=== PATIENT | male | born 1980 | race American Indian/Alaskan Native ===

== ENCOUNTER 2019-09-09 12:05 | Emergency (ER) | payer SELFPAY ==
[2019-09-09 12:41] VITALS: BP 121/81
== END 2019-09-09 14:10 | disposition left against medical advice (07) ==
LOC: ED 12:05
DX: M79.18 Myalgia, other site (principal); R05 Cough; Z53.21 Procedure and treatment not carried out due to patient leaving prior to being seen by health care provider

== ENCOUNTER 2021-04-12 23:17 | Emergency (ER) | payer OTHER ==
[2021-04-13] MEDS ORDERED: ACETAMINOPHEN 325 MG TAB PO ONE (02:26)
[2021-04-13 03:13] LABS: Hematocrit 42.4 % (35.5-45.6); Hemoglobin 14.8 gm/dl (11.8-15.2); Mean Corpuscular HGB Conc 35 % (32-34); Mean Corpuscular Volume 83 fl (84-94); Platelet Count 285 K/mm3 (140-440); Red Blood Count 5.12 M/mm3 (3.65-5.03); Red Cell Distribution Width 15.7 % (13.2-15.2)
[2021-04-13 03:29] LABS: BUN/Creatinine Ratio 6; Blood Urea Nitrogen 6 mg/dL (9-20); Calcium 9.2 mg/dL (8.4-10.2); Hemolysis Index 3
[2021-04-13 04:01] LABS: RBC Morphology Normal; Total Cells Counted 100
[2021-04-13 10:29] VITALS: BP 127/85
--- NOTE | 2021-04-13 10:30 | Emergency Department Report ---
ED Headache HPI - General Chief Complaint: Headache Stated Complaint: BAD HEADACHE Source: patient - History of Present Illness Initial Comments: 40-year-old male who reports no significant past medical history presents to the ER today with complaints of a left frontal headache. Patient states that he has had the headache for about 3 to 4 days. States that the headache has been constant and throbbing in nature. He states that he has not tried taking anything for the headache he was given Tylenol on arrival and he states that did seem to help with the pain. He states that he does not typically suffer from headaches. He denies any associated nausea, vomiting, neck pain, URI symptoms, cough, fever or chills. He denies any vision changes, slurred speech, focal weakness, numbness or tingling. He denies any recent head injuries. Timing/Duration: constant Quality: moderate Head Injury Location: frontal Allergies/Adverse Reactions: Allergies No Known Allergies Allergy (Unverified 11/15/15 08:36) Home Medications: Ambulatory Orders HYDROcodone/APAP 5-325 [[place] 5-325 mg TAB] 1 each PO Q4HR PRN #12 tablet 11/15/15 Sulfamethoxazole/Trimethoprim [Bactrim DS TAB] 1 each PO BID #14 tablet 11/15/15 Amoxicillin [Trimox CAP] 500 mg PO Q8H #21 capsule 04/13/21 Butalb/Acetamin/Caff 50-325-40 [Fioricet 50-325-40] 1 tab PO Q6HR PRN #12 tab 04/13/21 Fluticasone [Flonase] 2 spray NS QDAY #1 bottle 04/13/21 ED Review of Systems ROS: Stated complaint: BAD HEADACHE Other details as noted in HPI Comment: All other systems reviewed and negative Constitutional: denies: chills, fever Eyes: denies: eye pain, eye discharge, vision change ENT: denies: ear pain, throat pain, dental pain, hearing loss, epistaxis, congestion Respiratory: denies: cough, orthopnea, shortness of breath, SOB with exertion, SOB at rest, wheezing Cardiovascular: denies: chest pain, palpitations, dyspnea on exertion, edema, syncope, paroxysmal nocturnal dyspnea Gastrointestinal: denies: abdominal pain, nausea, vomiting, diarrhea, constipation, hematemesis, hematochezia Genitourinary: denies: frequency, hematuria, discharge, testicular pain, testicular mass Musculoskeletal: denies: back pain, joint swelling, arthralgia Skin: denies: rash, lesions, change in color, change in hair/nails, pruritus Neurological: headache. denies: weakness, numbness, paresthesias, confusion, abnormal gait Psychiatric: denies: anxiety, depression, auditory hallucinations, visual alejandro lucinations, homicidal thoughts, suicidal thoughts Hematological/Lymphatic: denies: easy bleeding, easy bruising ED Past Medical Hx - Past Medical History Hx HIV: Yes - Surgical History Additional Surgical History: left hip repair - Social History Smoking Status: Current Every Day Smoker Substance Use Type: None - Medications Home Medications: Home Medications Medication Instructions Recorded Confirmed Last Taken Type HYDROcodone/APAP 5-325 [[place] 1 each PO Q4HR PRN #12 tablet 11/15/15 Unknown Rx 5-325 mg TAB] Sulfamethoxazole/Trimethoprim 1 each PO BID #14 tablet 11/15/15 Unknown Rx [Bactrim DS TAB] Amoxicillin [Trimox CAP] 500 mg PO Q8H #21 capsule 04/13/21 Unknown Rx Butalb/Acetamin/Caff 50-325-40 1 tab PO Q6HR PRN #12 tab 04/13/21 Unknown Rx [Fioricet 50-325-40] Fluticasone [Flonase] 2 spray NS QDAY #1 bottle 04/13/21 Unknown Rx ED Physical Exam - General Limitations: No Limitations General appearance: alert, in no apparent distress - Head Head exam: Present: atraumatic, normocephalic, normal inspection - Eye Eye exam: Present: normal appearance, PERRL, EOMI Pupils: Present: normal accommodation - ENT ENT exam: Present: normal exam, mucous membranes moist, other (ttp LEFT FRONTAL SINUS) - Neck Neck exam: Present: normal inspection, full ROM. Absent: meningismus - Respiratory Respiratory exam: Present: normal lung sounds bilaterally. Absent: respiratory distress, wheezes, rales, rhonchi - Cardiovascular Cardiovascular Exam: Present: regular rate, normal rhythm, normal heart sounds - GI/Abdominal GI/Abdominal exam: Present: soft. Absent: distended, tenderness, guarding - Neurological Exam Neurological exam: Present: alert, oriented X3, CN II-XII intact, normal gait - Psychiatric Psychiatric exam: Present: normal affect, normal mood - Skin Skin exam: Present: intact ED Course Vital Signs 04/13/21 04/13/21 04/13/21 02:02 02:42 02:43 Temperature 98.3 F 99.2 F Pulse Rate 78 76 86 Respiratory 20 18 Rate Blood Pressure 116/79 118/72 Blood Pressure [Right] O2 Sat by Pulse 94 100 100 Oximetry 04/13/21 04/13/21 04/13/21 10:23 10:30 10:31 Temperature 97.5 F L 97.5 F L Pulse Rate 78 78 Respiratory 14 14 Rate Blood Pressure 127/85 Blood Pressure 127/85 [Right] O2 Sat by Pulse 98 98 98 Oximetry ED Medical Decision Making - Lab Data Result diagrams: 04/13/21 02:38 04/13/21 02:38 - Medical Decision Making The patient presented to the emergency department with a headache. The patient is resting comfortably and feels better, is alert, talkative, interactive and in no distress. The patient appears well and appears hydrated. The patient is neurologically intact, has a normal mental status, and is ambulatory in the ER. His history, exam, and the patient's current condition does not suggest meningitis, stroke, sepsis, subarachnoid hemorrhage, intracranial bleeding, encephalitis, temporal arteritis or other significant pathology to warrant further testing, continued ED treatment, admission, neurological consultation or other specialist evaluation at this point. He does have left frontal sinus tenderness, and so will be treated for possible sinus infection. His vital signs have been stable. Discussed suspected diagnosis and treatment plans. Patient the patient's condition is stable and appropriate for discharge. The patient will pursue further outpatient evaluation with the primary care physician. Critical care attestation.: If time is entered above; I have spent that time in minutes in the direct care of this critically ill patient, excluding procedure time. ED Disposition Clinical Impression: Headache Disposition: 01 HOME / SELF CARE / HOMELESS Is pt being admited?: No Does the pt Need Aspirin: No Condition: Stable Instructions: General Headache Without Cause, [id number] Additional Instructions: Take the Amoxicillin and flonase as prescribed, to help with possible sinus infection. Take the fioricet as prescribed to help also with headache. Follow up with PCP in next few days, you may need referral to neurologist if symptoms persist. Return to ED if worse. Prescriptions: Butalb/Acetamin/Caff 50-325-40 [Fioricet 50-325-40] 1 tab PO Q6HR PRN #12 tab PRN Reason: Headache Fluticasone [Flonase] 2 spray NS QDAY #1 bottle Amoxicillin [Trimox CAP] 500 mg PO Q8H #21 capsule Referrals: JENNIFER HARRELL MD [Staff Physician] - 3-5 Days Forms: Work/School Release Form(ED) Time of Disposition: 10:34
== END 2021-04-13 10:44 | disposition home or self-care (01) ==
LOC: ED 23:17
DX: R51.9 Headache, unspecified (principal); F17.200 Nicotine dependence, unspecified, uncomplicated
CPT/HCPCS: 36415; 80048; 85007; 85025; 99283